=== PATIENT | female | born 1965 | race Two or more races ===

== ENCOUNTER 2022-09-15 19:48 | Emergency (ER) | payer OTHER ==
[~2022-09-15] VITALS: Ht 162.6 cm; Wt 90.7 kg
[2022-09-15] MEDS ORDERED: LEVOTHYROXINE25 MCG (20:10)
[2022-09-15] MEDS ORDERED: ZESTRIL5 MG PO (20:10)
[2022-09-15] MEDS ORDERED: REPATHA SU140 MG/1 M SQ (20:10)
[2022-09-15] MEDS ORDERED: AMLODIPINE-OLM1 EAC2 (20:11)
== END 2022-09-15 22:35 | disposition home or self-care (01) ==
LOC: ER 19:48
DX: J10.1 Influenza due to other identified influenza virus with other respiratory manifestations (principal); Z91.041 Radiographic dye allergy status; Z88.2 Allergy status to sulfonamides; I10 Essential (primary) hypertension; Z20.822 Contact with and (suspected) exposure to COVID-19